=== PATIENT | male | born 1980 | race Hispanic/Latino ===

== ENCOUNTER 2017-07-11 20:00 | Emergency (ER) | payer SELFPAY ==
[2017-07-11 20:00] VITALS: BMI 27.3
[2017-07-11 20:08] VITALS: BP 148/80; PULSE 95; RESP 18; TEMP 98.2; O2SAT 98
--- NOTE | 2017-07-11 20:57 | ED PDOC ---
Arrival/HPI - General Historian: Patient - History of Present Illness Time/Duration: Prior to Arrival Symptom Onset: Sudden Quality: Aching Severity Level: Moderate Activities at Onset: Light Context: Home <Sade Alfaro - Last Filed: 07/11/17 21:35> <Zoran Young - Last Filed: 07/11/17 22:37> - General Chief Complaint: Abnormal Skin Integrity Time Seen by Provider: 07/11/17 20:49 - History of Present Illness Narrative History of Present Illness (Text): 07/11/17 21:01 This is a 36Y M with PMH of lumbar herniation who came to ED for cut on L forearm prior to arrival. He reports he was trying to open a wine bottle with a knife and the knife slipped and stabbed himself. The wound is on his L lateral wrist below the thumb. It was bleeding a lot at home so he decided to come in. He denies taking any blood thinners and his last tetanus shot was within the past few years. (Sade Alfaro) Past Medical History - Provider Review Nursing Documentation Reviewed: Yes - Travel History Have you recently traveled outside [place] w/in the past 3 mons?: No - Past History Past History: No Previous - Tetanus Immunization Tetanus Immunization: Up to Date - Hematological/Oncological Hx Blood Transfusions: No Hx Blood Transfusion Reaction: No - Psychiatric Hx Emotional Abuse: No Hx Physical Abuse: No Hx Substance Use: Yes - Surgical History Hx Inguinal Hernia Repair: Yes - Anesthesia Hx Anesthesia: Yes Hx Anesthesia Reactions: No Hx Malignant Hyperthermia: No - Suicidal Assessment Feels Threatened In Home Enviroment: No <Sade Alfaro - Last Filed: 07/11/17 21:35> Family/Social History - Physician Review Nursing Documentation Reviewed: Yes Family/Social History: No Known Family HX Smoking Status: Current Some Days Smoker Hx Alcohol Use: Yes Hx Substance Use: Yes <Sade Alfaro - Last Filed: 07/11/17 21:35> Allergies/Home Meds <Sade Alfaro - Last Filed: 07/11/17 21:35> <Zoran Young - Last Filed: 07/11/17 22:37> Allergies/Adverse Reactions: Allergies No Known Allergies Allergy (Verified 05/01/16 05:06) Review of Systems - Physician Review All systems were reviewed & negative as marked: Yes - Review of Systems Constitutional: Normal. absent: Fatigue Respiratory: Normal. absent: SOB Cardiovascular: Normal. absent: Chest Pain Gastrointestinal: Normal Musculoskeletal: Normal. absent: Joint Swelling, Myalgias Skin: Laceration (on L wrist ) Neurological: Normal. absent: Headache, Dizziness <Sade Alfaro - Last Filed: 07/11/17 21:35> Physical Exam Vital Signs Reviewed: Yes Temperature: Afebrile Blood Pressure: Normal Pulse: Tachycardic Respiratory Rate: Normal Appearance: Positive for: Well-Appearing, Non-Toxic, Comfortable Pain Distress: None Mental Status: Positive for: Alert and Oriented X 3 - Systems Exam Head: Present: Atraumatic, Normocephalic Mouth: Present: Moist Mucous Membranes Neck: Present: Normal Range of Motion Respiratory/Chest: Present: Clear to Auscultation, Good Air Exchange. No: Respiratory Distress, Accessory Muscle Use Cardiovascular: Present: Regular Rate and Rhythm, Normal S1, S2. No: Murmurs Abdomen: No: Peritoneal Signs Upper Extremity: Present: Normal Inspection. No: Cyanosis, Edema Lower Extremity: Present: Normal Inspection. No: Edema Neurological: Present: GCS=15, CN II-XII Intact, Speech Normal Skin: Present: Warm, Dry, Normal Color, Laceration (1 cm linear laceration on L lateral wrist/forearm region ). No: Rashes Psychiatric: Present: Alert, Oriented x 3, Normal Insight, Normal Concentration <Sade Alfaro - Last Filed: 07/11/17 21:35> <Zoran Young - Last Filed: 07/11/17 22:37> Vital Signs Temp Pulse Resp BP Pulse Ox 07/11/17 20:05 98.2 F 95 H 18 148/80 98 Medical Decision Making Re-evaluation Time: 20:45 Reassessment Condition: Improved <Sade Alfaro - Last Filed: 07/11/17 21:35> <Zoran Young - Last Filed: 07/11/17 22:37> ED Course and Treatment: 07/11/17 21:08 Impression: This is a 36Y M with PMH of lumbar herniation here for L wrist/forearm laceration. Plan: -- Laceration repair -- Reassess and disposition Prior Visits: Notes and results from previous visits were reviewed. Progress Notes: Patient tolerated procedure well. On re-evaluation, patient feels better and is in no acute distress. I have discussed the results and plan with the patient, who expresses understanding. Patient in agreement with plan to be discharged home. Patient is stable for discharge. Patient was instructed to follow up with physician or return if symptoms worsen or new concerning symptoms arise. ( Sade Alfaro) Impression: Pt seen and evaluated with medical coding technician. Pt, whose past medical history includes lumbar herniation, presented for left forearm laceration prior to arrival. Pt attempted to open a wine bottle with knife and accidentally cut himself on the left wrist below the thumb. Aware and agree with HPI, clinical findings, plan, and management. Plan: -- Laceration repair -- Reassess and disposition Laceration repair performed by resident under my supervision. Pt tolerated procedure well, no complications. Appropriate dressing applied. Pt stable for discharge. (Zoran Young) Procedures - Laceration/Wound Repair Left Lateral Wrist Wound Length (cm): 1 Wound's Depth, Shape: into muscle, linear Wound Explored: no foreign body removed Irrigated w/ Saline (ccs): 3 Betadine Prep?: Yes Anesthesia: 1% Lidocaine Volume Anesthetic (ccs): 2 Wound Debrided: minimal Wound Repaired With: Sutures Suture Size/Type: 5:0 Number of Sutures: 2 Layer Closure?: No Wound Complexity: Simple Sterile Dressing Applied?: Yes <Sade Alfaro - Last Filed: 07/11/17 21:35> - PA / SEWER CLEANER / Resident Statement / has reviewed & agrees with the documentation as recorded. / has examined the patient and agrees with the treatment plan. <Zoran Young - Last Filed: 07/11/17 22:37> Disposition/Present on Arrival - Present on Arrival Any Indicators Present on Arrival: No History of DVT/PE: No History of Uncontrolled Diabetes: No Urinary Catheter: No History of Decub. Ulcer: No History Surgical Site Infection Following: None - Disposition Have Diagnosis and Disposition been Completed?: Yes Disposition Time: 20:54 Patient Plan: Discharge <Sade Alfaro - Last Filed: 07/11/17 21:35> <Zoran Young - Last Filed: 07/11/17 22:37> - Disposition Diagnosis: Laceration Disposition: HOME/ ROUTINE Condition: GOOD Discharge Instructions (ExitCare): Laceration (ED) Print Language: MICRONESIAN Additional Instructions: Mr. Espinosa, thank you for letting us take care of you today. Your provider was Dr. Alfaro. You were treated for arm laceration. The emergency medical care you received today was directed at your acute symptoms. If you were prescribed any medication, please fill it and take as directed. It may take several days for your symptoms to resolve. Return to the Emergency Department if your symptoms worsen, do not improve, or if you have any other problems. Please contact your doctor or call one of the physicians/clinics you have been referred to that are listed on the Patient Visit Information form that is included in your discharge packet. Bring any paperwork you were given at discharge with you along with any medications you are taking to your follow up visit. Our treatment cannot replace ongoing medical care by a primary care provider (PCP) outside of the emergency department. Thank you for allowing the [facility] team to be part of your care today. Forms: [employer] (Kinyarwanda)
== END 2017-07-11 21:08 | disposition home or self-care (01) ==
LOC: ED 20:00
DX: S61.512A Laceration without foreign body of left wrist, initial encounter (principal); W26.0XXA Contact with knife, initial encounter; Y92.009 Unspecified place in unspecified non-institutional (private) residence as the place of occurrence of the external cause

== ENCOUNTER 2017-12-11 17:45 | Emergency (ER) | payer BC, OTHER ==
[2017-12-11 17:45] VITALS: BMI 27.3
[2017-12-11] MEDS ORDERED: Multivitamin (MVI) 10 ML, Thiamine 100 MG, Folic Acid 1 MG in Sodium Chloride 0.9% 1,00... IV ONE (18:18)
--- NOTE | 2017-12-11 18:28 | ED PDOC ---
Arrival/HPI - General Chief Complaint: Alcohol Ingestion Time Seen by Provider: 12/11/17 17:51 Historian: Patient, Spouse - History of Present Illness Narrative History of Present Illness (Text): 12/11/17 18:19 This 37 yo male with a pmh anxiety, presents to this ED with his for evaluation of alcohol intoxication. Patient stated he had 4 large alcohol drinks earlier today. stated he broke a few thing in the house. requested to have patient IVF, and to sober up for an hour or two. stated she is safe in the house, and she does not feel threaten by patient. Patient denies HI, SI, paranoia, hallucination, illegal drug use, abdominal pain, sob, cp, tremors, skin rash, or CMS. Time/Duration: Other (see hpi) Context: Home Past Medical History - Provider Review Nursing Documentation Reviewed: Yes - Past History Past History: No Previous - Infectious Disease Hx of Infectious Diseases: None - Tetanus Immunization Tetanus Immunization: Up to Date - Cardiac Hx Cardiac Disorders: Yes Hx Hypertension: Yes - Pulmonary Hx Respiratory Disorders: No - Neurological Hx Neurological Disorder: No - HEENT Hx HEENT Disorder: No - Renal Hx Renal Disorder: No - Endocrine/Metabolic Hx Endocrine Disorders: No - Hematological/Oncological Hx Blood Transfusions: No Hx Blood Transfusion Reaction: No - Integumentary Hx Basal Cell Carcinoma: No - Musculoskeletal/Rheumatological Hx Herniated Disk: No - Gastrointestinal Hx Diverticulitis: No - Psychiatric Hx Psychophysiologic Disorder: Yes Hx Depression: Yes Hx Emotional Abuse: No Hx Physical Abuse: No Hx Substance Use: Yes - Surgical History Hx Inguinal Hernia Repair: Yes - Anesthesia Hx Anesthesia: Yes Hx Anesthesia Reactions: No Hx Malignant Hyperthermia: No - Suicidal Assessment Feels Threatened In Home Enviroment: No Family/Social History - Physician Review Nursing Documentation Reviewed: Yes Family/Social History: Other (noncontributory) Smoking Status: Current Some Days Smoker Hx Alcohol Use: Yes Hx Substance Use: Yes Allergies/Home Meds Allergies/Adverse Reactions: Allergies No Known Allergies Allergy (Verified 12/11/17 17:53) Home Medications: Home Meds Medication Instructions Recorded Confirmed Sertraline HCl [Zoloft] 0 mg PO BID 12/11/17 12/11/17 Review of Systems - Review of Systems Constitutional: Normal. absent: Fatigue, Weight Change, Fevers Eyes: Normal ENT: Normal Respiratory: Normal. absent: SOB, Cough Cardiovascular: Normal. absent: Chest Pain, Palpitations Gastrointestinal: Normal. absent: Abdominal Pain, Nausea, Vomiting Genitourinary Male: Normal Musculoskeletal: Normal Skin: Normal Neurological: Normal. absent: Headache Endocrine: Normal Hemo/Lymphatic: Normal Psychiatric: Other ((+) alcohol intoxication). absent: Anxiety, Depression, Suicidal Ideation Physical Exam Vital Signs Temp Pulse Resp BP Pulse Ox 12/11/17 17:45 98.7 F 99 H 18 110/64 97 Temperature: Afebrile Blood Pressure: Normal Pulse: Regular Respiratory Rate: Normal Appearance: Positive for: Well-Appearing, Non-Toxic, Comfortable Pain Distress: None Mental Status: Positive for: Alert and Oriented X 3 - Systems Exam Head: Present: Atraumatic, Normocephalic, Other (no raccoon sign. no mcdaniel sign) Pupils: Present: PERRL Extroacular Muscles: Present: EOMI. No: Entrapment Conjunctiva: Present: Normal Ears: Present: Normal, NORMAL TM, Normal Canal. No: Erythema, TM Bulging, Fluid , TM Perf Mouth: Present: Moist Mucous Membranes, Normal Lips, Normal Tounge, Normal Teeth. No: Drooling Pharnyx: Present: Normal. No: ERYTHEMA, EXUDATE, TONSILS ENLARGED Nose (External): Present: Atraumatic Nose (Internal): Present: Normal Inspection Neck: Present: Normal Range of Motion, Trachea Midline. No: Meningeal Signs, MIDLINE TENDERNESS, Paraspinal Tenderness, Lymphadenopathy Respiratory/Chest: Present: Clear to Auscultation, Good Air Exchange. No: Respiratory Distress, Accessory Muscle Use Cardiovascular: Present: Regular Rate and Rhythm, Normal S1, S2. No: Murmurs Abdomen: Present: Normal Bowel Sounds. No: Tenderness, Distention, Peritoneal Signs, Rebound, Guarding Back: Present: Normal Inspection. No: CVA Tenderness Upper Extremity: Present: Normal Inspection, Normal ROM. No: Cyanosis, Edema Lower Extremity: Present: Normal Inspection, Normal ROM. No: Edema Neurological: Present: GCS=15, CN II-XII Intact, Speech Normal, Motor Func Grossly Intact, Normal Sensory Function, Normal Cerebellar Funct, Memory Normal Skin: Present: Warm, Dry, Normal Color. No: Rashes Psychiatric: Present: Alert, Oriented x 3, Normal Insight, Normal Concentration Medical Decision Making ED Course and Treatment: 12/11/17 18:29 is at bedside. Patient appears comfortable. No b/l hand tenderness. Denies SI or HI. 12/11/17 21:02 is at bedside. She is taking complete responsibility for patient. She wants to take pt home, and she agrees to monitor him. Re-evaluation Time: 21:03 Reassessment Condition: Re-examined, Improved - Medication Orders Current Medication Orders: Discontinued Medications Diazepam (Valium) 2 mg PO STAT STA PRN Reason: Protocol Stop: 12/11/17 18:19 Last Admin: 12/11/17 18:33 Dose: 2 mg Multivitamins/Vitamin C 10 ml/Thiamine HCl 100 mg/ Folic Acid 1 mg/ Sodium Chloride 1,011.2 mls @ 1,000 mls/hr IV .Q1H1M ONE Stop: 12/11/17 19:18 Last Admin: 12/11/17 18:52 Dose: 1,000 mls/hr eMAR Start Stop Document 12/11/17 18:52 SRE (Rec: 12/11/17 18:53 SRE [id number]) Intravenous Solution Start Date 12/11/17 Start Time 18:53 Disposition/Present on Arrival - Present on Arrival Any Indicators Present on Arrival: No History of DVT/PE: No History of Uncontrolled Diabetes: No Urinary Catheter: No History of Decub. Ulcer: No History Surgical Site Infection Following: None - Disposition Have Diagnosis and Disposition been Completed?: Yes Diagnosis: Alcohol intoxication Disposition: HOME/ ROUTINE Disposition Time: 21:03 Patient Plan: Discharge Condition: GOOD Discharge Instructions (ExitCare): Alcohol Abuse and Alcoholism (DC) Additional Instructions: Call private doctor for follow up0 visit in 1-2 days. Do not abuse alcohol. Return to emergency if symptoms returns Referrals: Doretha CHAPMAN,Patrick Zamora MD [Primary Care Provider] - Follow up with primary Forms: [employer] (Martiniquais)
[2017-12-11 21:10] VITALS: BP 118/63; PULSE 78; RESP 16; TEMP 97.7; O2SAT 100
== END 2017-12-11 21:10 | disposition home or self-care (01) ==
LOC: ED 17:45
DX: F10.129 Alcohol abuse with intoxication, unspecified (principal); I10 Essential (primary) hypertension
CPT/HCPCS: 96374; 99284; J3411; J7040

== ENCOUNTER 2018-07-10 20:51 | Emergency (ER) | payer BC ==
[2018-07-10 21:05] VITALS: BMI 26.6
[2018-07-10 21:16] VITALS: RESP 18; TEMP 98.5
--- NOTE | 2018-07-10 21:20 | ED PDOC ---
Arrival/HPI - General Chief Complaint: Bite Time Seen by Provider: 07/10/18 21:06 Historian: Patient - History of Present Illness Narrative History of Present Illness (Text): 07/10/18 21:19 Patient is a 37 year old male who presents with his partner to the emergency department for evaluation of dog bite. Patient had some EtOH and started arguing with his partner. During the argument the partner's dog started biting the patient in multiple areas including the arms, lower extremities, and face. Patient denies any head trauma, and states not remembering when he last received a tetanus vaccine. Of note dog is not vaccinated. Time/Duration: Prior to Arrival Symptom Onset: Sudden Context: Home Past Medical History - Provider Review Nursing Documentation Reviewed: Yes - Past History Past History: No Previous - Infectious Disease Hx of Infectious Diseases: None - Tetanus Immunization Tetanus Immunization: Up to Date - Cardiac Hx Cardiac Disorders: Yes Hx Hypertension: Yes - Pulmonary Hx Respiratory Disorders: No - Neurological Hx Neurological Disorder: No - HEENT Hx HEENT Disorder: No - Renal Hx Renal Disorder: No - Endocrine/Metabolic Hx Endocrine Disorders: No - Hematological/Oncological Hx Blood Transfusions: No Hx Blood Transfusion Reaction: No - Integumentary Hx Basal Cell Carcinoma: No - Musculoskeletal/Rheumatological Hx Herniated Disk: No - Gastrointestinal Hx Diverticulitis: No - Psychiatric Hx Psychophysiologic Disorder: Yes Hx Depression: Yes Hx Emotional Abuse: No Hx Physical Abuse: No Hx Substance Use: Yes - Surgical History Hx Inguinal Hernia Repair: Yes - Anesthesia Hx Anesthesia: Yes Hx Anesthesia Reactions: No Hx Malignant Hyperthermia: No - Suicidal Assessment Feels Threatened In Home Enviroment: No Family/Social History - Physician Review Nursing Documentation Reviewed: Yes Family/Social History: No Known Family HX Smoking Status: Current Some Days Smoker Hx Alcohol Use: Yes Hx Substance Use: Yes Allergies/Home Meds Allergies/Adverse Reactions: Allergies No Known Allergies Allergy (Verified 12/11/17 17:53) Review of Systems - Review of Systems Skin: Laceration Physical Exam Vital Signs Reviewed: Yes Vital Signs Temp Pulse Resp BP Pulse Ox 07/11/18 00:36 85 18 121/72 100 07/10/18 21:09 98.5 F 94 H 18 116/62 96 Temperature: Afebrile Blood Pressure: Normal Pulse: Regular Respiratory Rate: Normal Appearance: Positive for: Well-Appearing Mental Status: Positive for: Alert and Oriented X 3 - Systems Exam Head: Present: Atraumatic, Normocephalic, Other (coagulated blood on face and nares.) Pupils: Present: PERRL Extroacular Muscles: Present: EOMI Conjunctiva: Present: Normal Mouth: Present: Moist Mucous Membranes, Other (Laceration to mike border of lower lip. Hard palate intact. No lingual ) Neck: Present: Normal Range of Motion Upper Extremity: Present: Normal Inspection. No: Cyanosis, Edema Lower Extremity: Present: Normal Inspection. No: Edema Neurological: Present: GCS=15, CN II-XII Intact, Speech Normal Skin: Present: Warm, Dry, Laceration (Multiple lacerations noted to bilateral upper extremities.). No: Rashes Psychiatric: Present: Alert, Oriented x 3, Normal Insight, Normal Concentration Medical Decision Making ED Course and Treatment: 07/10/18 21:20 Impression: 37 year old male who is complaining of dog bites. Differential Diagnosis included but are not limited to: Rabies exposure. Plan: --TDAP vaccine --Suture repair --Unasyn --Rabies vaccine -- Reassess and disposition Prior Visits: Notes and results from previous visits were reviewed. Progress Notes: 07/10/18 22:08 Dr. Carrasquillo(plastic surgery) currently at bedside performing laceration repair. Will administer vaccine. Patient and his were informed of multiple vaccination needed over the course of the next few days. 07/10/18 22:56 Suture repair completed. Patient will have one dose of Unasyn and continue on Augmentin PO once discharged. He will follow up with Dr. Carrasquillo on 07/12/18. He is reminded to return back to ED on Day 3, Day 7 and Day 14 for the remainder of his rabies vaccination series. Scripts provided. He is stable for discharge. - Medication Orders Current Medication Orders: Discontinued Medications Amoxicillin/Clavulanate Potassium (Augmentin 875 Mg-125 Mg Tab) 1 tab PO STAT STA PRN Reason: Protocol Stop: 07/10/18 21:27 Last Admin: 07/10/18 21:44 Dose: 1 tab Ampicillin Sodium/Sulbactam (Sodium 3 gm/ Sodium Chloride) 100 mls @ 100 mls/ hr IVPB STAT STA PRN Reason: Protocol Stop: 07/10/18 23:54 Last Admin: 07/10/18 23:45 Dose: 100 mls/hr eMAR Start Stop Document 07/10/18 23:45 CNR (Rec: 07/10/18 23:45 CNR [id number]) Intravenous Solution Start Date 07/10/18 Start Time 23:45 End Date 07/11/18 End time 00:15 Total Infusion Time 30 Lidocaine HCl (Lidocaine 1% 5 Ml) 20 mg IJ STAT STA Stop: 07/10/18 22:03 Oxycodone/Acetaminophen (Percocet 5/325 Mg Tab) 1 tab PO STAT STA Stop: 07/10/18 21:26 Last Admin: 07/10/18 21:44 Dose: 1 tab MAR Pain Assessment Document 07/10/18 21:44 AD (Rec: 07/10/18 21:44 AD [id number]) Pain Reassessment Is this a pain reassessment? No Presence of Pain Presence of Pain Yes Pain Scale Used Pain Scale Used Numeric Description Intensity of Pain at present 10 Pain Behavior Facial Grimacing Rabies Vaccine Human Diploid Cell (Imovax Rabies) 2.5 units IM .ONCE ONE Stop: 07/10/18 21:41 Last Admin: 07/10/18 22:00 Dose: 2.5 units Immunization Registry Document 07/10/18 22:00 AD (Rec: 07/11/18 01:05 AD [id number]) Immunization Registry Consent Date 07/10/18 Tetanus/Reduced Diphtheria/Acell Pertussis (Boostrix Vaccine Inj) 0.5 ml IM .ONCE ONE Stop: 07/10/18 21:22 Last Admin: 07/10/18 21:45 Dose: 0.5 ml Immunization Registry Document 07/10/18 21:45 AD (Rec: 07/11/18 01:06 AD [id number]) Immunization Registry Consent Date 07/10/18 - Scribe Statement The provider has reviewed the documentation as recorded by the Scribcody De La Torre Provider Scribe Attestation: All medical record entries made by the Scribe were at my direction and personally dictated by me. I have reviewed the chart and agree that the record accurately reflects my personal performance of the history, physical exam, medical decision making, and the department course for this patient. I have also personally directed, reviewed, and agree with the discharge instructions and disposition. Disposition/Present on Arrival - Present on Arrival Any Indicators Present on Arrival: No History of DVT/PE: No History of Uncontrolled Diabetes: No Urinary Catheter: No History of Decub. Ulcer: No History Surgical Site Infection Following: None - Disposition Have Diagnosis and Disposition been Completed?: Yes Diagnosis: Dog bite Disposition: HOME/ ROUTINE Disposition Time: 23:00 Patient Plan: Discharge Condition: IMPROVED Additional Instructions: PLEASE RETURN TO THE ED ON 07/13, ON 07/17, AND 07/24 FOR THE REMAINDER OF YOUR RABIES VACCINATIONS PLEASE FOLLOW UP WITH DR. CARRASQUILLO ON 07/12 FOR REEVALUATION OF THE WOUNDS PLEASE USE BACITRACIN ON THE FACE THREE TIMES A DAY AND KEEP ARM DRESSINGS INTACT Prescriptions: Amoxicillin/Clavulanate [Augmentin 875 MG-125 MG] 1 tab PO BID 10 Days #20 tab oxyCODONE/Acetaminophen [Percocet 5/325 mg Tab] 1 ea PO PRN PRN 1 Days #4 tab PRN Reason: Pain, Severe (8-10) Referrals: Jolynn Carrasquillo MD [Staff Provider] - Follow up with primary Forms: [employer] (Malagasy), WORK NOTE
[2018-07-10] MEDS ORDERED: TDAP Vaccine 0.5 mL Syr IM ONE (21:21)
[2018-07-10] MEDS ORDERED: Oxycodone/Acetaminophen 5/325 mg Tab PO STA (21:25)
[2018-07-10] MEDS ORDERED: Amoxicillin-Clav 875-125 mg Tab PO STA (21:26)
[2018-07-10] MEDS ORDERED: Lidocaine 1% 5ml Abboject IJ STA (22:02)
[2018-07-11 01:48] VITALS: BP 121/72; PULSE 85; O2SAT 100
--- NOTE | 2018-07-16 00:12 | OP ---
PROCEDURE DATE: 07/10/2018 PREOPERATIVE DIAGNOSES: 1. Dog bite to face, neck, and bilateral upper extremities. 2. 3 cm left philtrum laceration. 3. 2 cm left lower lip laceration. 4. 8 cm neck laceration. 5. Laceration of platysma muscle of neck and possible vital structure laceration of the neck. 6. 2 cm, 2 cm, 2 cm, 2 cm for total 8 cm left wrist and dorsal and volar forearm lacerations. 7. Possible right index finger extensor digitorum communis and extensor indicis proprius tendon laceration. 8. Possible flexor muscle laceration of the right forearm. 9. Right hand 1 x 1.5 cm skin avulsion. 10. Right forearm antecubital fossa 3, 2, 2, 3, 2, 1, a total of 13 cm of lacerations of the right forearm. 11. 4 cm right posterior elbow lacerations total. POSTOPERATIVE DIAGNOSES: 1. Dog bite to face, neck, and bilateral upper extremities. 2. 3 cm left philtrum laceration. 3. 2 cm left lower lip laceration. 4. 8 cm neck laceration. 5. Laceration of platysma muscle of neck and possible vital structure laceration of the neck. 6. 2 cm, 2 cm, 2 cm, 2 cm for total 8 cm left wrist and dorsal and volar forearm lacerations. 7. Possible right index finger extensor digitorum communis and extensor indicis proprius tendon laceration. 8. Possible flexor muscle laceration of the right forearm. 9. Right hand 1 x 1.5 cm skin avulsion. 10. Right forearm antecubital fossa 3,2,2, 3, 2, 1, a total of 13 cm of lacerations of the right forearm. 11. 4 cm right posterior elbow lacerations total. PROCEDURE PERFORMED: 1. Adjacent tissue transfer, right hand 3 sq cm. 2. Exploration of penetrating wounds, right upper extremity. 3. Complex repair of total of 13 cm right arm laceration repair. 4. Complex repair of total of 8 cm left arm laceration. 5. Exploration of penetrating wound of the neck. 6. Repair of platysma muscle of the neck, platysmaplasty. 7. Complex repair of 8 cm neck laceration. 8. Complex repair of 3 cm left philtrum laceration. 9. Complex repair of 2 cm left lower lip laceration. SURGEON: Jolynn Enrique MD TYPE OF ANESTHESIA: Local as well as regional: 1. Bilateral infraorbital nerve blocks. 2. Left mental nerve block as well as local. ANESTHESIA: 0.5% Marcaine mixed with 1% lidocaine was used in the arms and the local, a total of 40 mL. INDICATIONS OF PROCEDURE: Please refer to my separately dictated ER consultation for history and physical. DESCRIPTION OF PROCEDURE: 0.5% Marcaine mixed with 1% lidocaine with 1:100,000 epinephrine was used in bilateral upper extremity open wounds. 1% lidocaine with 1:100,000 epinephrine was used in bilateral infraorbital and left mental nerve blocks. We thoroughly irrigated all of the open wounds, even the one we did the suture and the ones we sutured with many liters of normal saline and dilute Betadine, started the operation on the face. 3 cm left philtrum laceration debrided, the skin edges were irregular and contused. This was a technique used with 4-0 Monocryl and I then approximated the underlying orbicularis baldomero muscle in interrupted fashion, with 5-0 Monocryl and approximated the deep dermis in interrupted fashion and 6-0 Prolene in interrupted fashion with wounds in the 3 cm left philtrum laceration. Left lower lip 2 cm laceration involving the lip and the underlying muscle in the vermilion border. A 4-0 Monocryl was used to repair the muscle, 4-0 Monocryl for the submucosal area and then a 5-0 Prolene for the vermilion border, 5-0 chromic for the lip mucosa for the 2 cm laceration. There was a penetrating wound to the neck that went through the platysma muscle, so I explored the wound by making the incision larger and I did exploration of the neck. There were no injuries to any vital structures. After irrigating the wound, I repaired the platysma with 4-0 Vicryl in [id number] suture and did a complex repair of the 8 cm neck wound after debriding the skin edges with 4-0 Monocryl subcutaneous and deep dermal sutures in an interrupted 5-0 Prolene sutures. We then addressed the left wrist and forearm, there were 4 discrete lacerations each 2 cm, each 2 in the volar site and 2 in the dorsal site. He was neurovascularly intact. This was thoroughly irrigated. Skin edges were debrided with scissor technique and a single 4-0 nylon or Prolene was used in each of these 4 wounds. I then addressed the right upper extremity. Right hand dorsum, there was 1.5 x 1 cm area skin evulsion. I debrided the skin. I did a local tissue rearrangement, after I did exploration by making the incision larger the extensor digitorum communis, extensor indicis proprius tendons were completely intact. I then did a 3 cm adjacent tissue transfer flap for wound closure to change the orientation of the wound after making a backcut with a scissors and then using 4-0 Prolene sutures in interrupted fashion. I explored the right volar forearm by making the incision larger. The deep muscle fascia was not violated, so there was no flexor tendon or nerve injury. There was a 3 cm, 2 cm, 2 cm, 3 cm, 2 cm, and 1 cm, total of 13 cm of right antecubital fossa and forearm lacerations, which all were debrided with scissor technique and then closed loosely with 1 or 2, 4-0 nylon sutures. There were some lacerations on the back of the elbow, which were not closed and other abrasion and superficial wounds, which were not closed. We then placed Xeroform dry sterile dressing and Ann wrap on both upper extremities and antibiotic ointment on the facial lacerations and the neck lacerations. He was given a dose of IV antibiotic and discharged home with oral antibiotics. A postop wound care limitation and physical activities, the fact there will be significant scarring, the risk of infection, the signs of infection, the possible need to be admitted for IV antibiotics and further surgical procedures were discussed and all questions were answered. Jolynn Enrique MD
--- NOTE | 2018-07-16 00:30 | CON ---
DATE: 07/10/2018 EMERGENCY ROOM CONSULTATION SURGEON: Jolynn Enrique MD HISTORY OF PRESENT ILLNESS: This is a 37-year-old healthy male who was bitten by his dog and sustained multiple lacerations of his face, his neck, and bilateral upper extremities. 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 I came and evaluated to treat the patient. The patient sustained multiple complex lacerations to his face and both arms. PHYSICAL EXAMINATION: HEENT: The patient's left dorsum, there was a 3 cm laceration involving the muscles and irregular skin edges. Patient's left lower lip, there was a 2 cm laceration involving the underlying orbicularis baldomero muscle. NECK: On the patient's neck, there is a 8 cm transverse laceration through the platysma. EXTREMITIES: On the upper extremities, on the left dorsal and volar wrist, there were four discrete lacerations, each 2 cm long over there and there were multiple scratch allen and superficial cuts in the left upper extremity and the right upper extremity and the dorsal aspect of the right hand and there was a 1 x 1.5 cm skin loss. There was questionable concern for right index finger, extensor digitorum communis and extensor indicis proprius tendon laceration. On the right volar forearm, there was concern for underlying flexor muscle laceration and there was also on the right forearm, six discrete lacerations, one was 3 cm, one was 2 cm, other was 2 cm, other was 3 cm, other was 2 cm and other was 1 cm and then on the right elbow, there were four parallel lacerations, 1 cm each. The patient was neurovascularly intact to both upper extremities. He had some limitation in extending his right index finger. There was concern for underlying tendon injury. I explained to the patient and his that he has got multiple lacerations on dog bite. After regional and local anesthesia, we would thoroughly irrigate all of them, wash them out, close them loosely with stitches, explore the neck and explore the hand to see if there is a tendon injury and repair the facial laceration in the complex manner and debride the skin edges and treat him with a dose of IV antibiotics followed by oral antibiotics. I told them about appropriate wound care, the need to take oral antibiotics, follow up with me in 2 days. Any signs of infection, he may need to be readmitted for IV antibiotics for further surgical procedure. He is going to have scarring and the prognosis of which was unknown. Patient understood this and wished to proceed. I will now dictate a separate operative report. Jolynn Enrique MD
== END 2018-07-11 00:36 | disposition home or self-care (01) ==
LOC: ED 20:51
DX: S01.511A Laceration without foreign body of lip, initial encounter (principal); S41.112A Laceration without foreign body of left upper arm, initial encounter; S41.111A Laceration without foreign body of right upper arm, initial encounter; W54.0XXA Bitten by dog, initial encounter; Y92.89 Other specified places as the place of occurrence of the external cause; Z23 Encounter for immunization
CPT/HCPCS: 90471; 90472; 90675; 90715; 96365; 99283; J0295